=== PATIENT | male | born 1970 | race Caucasian/White ===

== ENCOUNTER → 2016-11-15 | Outpatient (CLI) | payer BC ==
[~2016-11-15] MED LIST: BACTRIM DS1 TAB PO; COLACE100 MG PO; COREG12.5 MG PO; COZAAR50 MG PO; CPAP INH; FLOMAX0.4 MG PO; FLONASE 50 MCG/16 GM NOSE; HYDRODIURIL25 MG PO; LEVAQUIN500 MG PO; NEOSPORIN1 PKT TOP; NORCO 5-325 TA1 EACH PO; NORVASC10 MG PO; OMNICEF 300MG300 MG PO; SANCTURA 20MG20 MG PO; TESTOSTERO200 MG/11 IM; THERA-VITE W/ B1 TAB PO; TYLENOL325 MG PO; VALIUM5 MG PO
== END | disposition disaster alternative care site (69) ==
LOC: GRAD 07:44
PROC: BT1BYZZ Fluoroscopy of Bladder and Urethra using Other Contrast (ICD-10-PCS; principal; 2016-11-15)
DX: N35.9 Urethral stricture, unspecified (principal)

== ENCOUNTER 2016-12-02 07:30 | Day surgery (SDC) | payer BC ==
[~2016-12-02] VITALS: Ht 172.7 cm; Wt 114.1 kg
--- NOTE | ~2016-12-02 | OR ---
PATIENT'S NAME: [facility] AGE: 46 Y [address] ROOM: [address] [address] LOCATION: [facility] [place] ADMIT DATE: 12/02/2016 OR/Procedure Report DISCHARGE DATE: FAMILY PHYSICIAN: LUCAS RIEC MD ATTENDING PHYSICIAN: DESTINEE SHULTZ SURGEON: Destinee Shultz MD MICROELECTRONICS ENGINEER: None. DATE OF PROCEDURE: 12/02/2016 PREOPERATIVE DIAGNOSIS: Bulbar urethral stricture. POSTOPERATIVE DIAGNOSIS: Bulbar urethral stricture. OPERATION PERFORMED: Anterior urethroplasty using excision and primary anastomotic technique and cystoscopy. ANESTHESIA ADMINISTERED: General. INDICATIONS FOR PROCEDURE: The patient is a pleasant, 46-year-old male with history of recurrent urethral stricture who had underwent urethral dilation on April 28, 2016. He ultimately developed a recurrence and presents today for definitive treatment. The patient was explained the risks, benefits, indications, and alternatives to the above procedure, wished to proceed, and consented freely. DESCRIPTION OF OPERATION: The patient was brought back to the operating room where he was placed on the OR table in the supine position. A surgical time- out was called where patient identification, surgical site, and procedure were then verified. We also did verify that the patient received an IV Levaquin antibiotic within an hour of beginning the procedure. The patient then underwent successful administration of general endotracheal anesthesia. The patient was then moved and placed in a dorsal lithotomy position. His abdomen and genital area were then prepped and draped in the usual sterile fashion. A red rubber catheter had been placed per urethra, a midline perineal incision was made in the skin, and the soft tissue was divided. A perineal Bookwalter retractor was then placed and used to aid in our retraction. The bulbospongiosus muscle was exposed and divided in the midline with Bovie cautery. The urethra was then exposed ventrally and then laterally. Next, we began the dorsal dissection, mobilizing the urethra from its attachments. We then took down the central perineal tendon. We were able to preserve the blood supply at the 5 o'clock and 7 o'clock positions. The stricture was right at the bulbar membranous region, and I opened up the urethra at the level of the stricture. I excised the stricture, and this was sent for pathologic analysis. I then performed cystoscopy, and there did appear to be a second urethral stricture which was approximately 18-Georgian in caliber just PATIENT'S NAME: [facility] AGE: 46 Y [address] ROOM: [address] [address] LOCATION: [facility] [place] ADMIT DATE: 12/02/2016 OR/Procedure Report DISCHARGE DATE: FAMILY PHYSICIAN: LUCAS RICE MD ATTENDING PHYSICIAN: DESTINEE SHULTZ distal to the stricture which was excised. I then further excised the proximal stump to excise the second urethral stricture, and this was still distal to his urethral sphincter. Full pancystoscopy was then performed, and his posterior urethra was notable for some [id number] bilobar hyperplasia of the prostate. His bladder was negative for any bladder tumors, cellules, or diverticula. He did have some mild bladder trabeculation noted. Again, this was a transecting technique. I spatulated the proximal stump dorsally and the distal stump ventrally. I then used a 5-0 PDS to perform the anastomosis, and sutures were placed in an interrupted fashion starting with the back wall dorsally. Once I had placed interrupted sutures along the back wall, I then placed a 14-Georgian silicone catheter which was placed without difficulty. I then tied down the ventral sutures, giving a nice secure and capacious anastomosis. I then used a 4-0 PDS suture to reapproximate the bulbospongiosus muscle in a running fashion. I had placed some FloSeal just inside the spongiosum muscle. The subcutaneous tissue was then closed with a 3-0 PDS and the skin with a 4-0 Monocryl suture. The 14-Georgian catheter was left indwelling. The patient was then taken out of the lithotomy position, and we placed fluffs in his perineum in a scrotal support and left the catheter to gravity drainage. The patient was then awoken from general anesthesia where he was then extubated, transferred to the recovery bed, and transported to the recovery room in good condition. COMPLICATIONS: None. SPECIMENS: Urethral stricture for pathologic analysis. ESTIMATED BLOOD LOSS: 200 mL. DRAINS: Indwelling urethral Dowling catheter to gravity drainage. FOLLOWUP PLAN: We will admit the patient overnight for observation with likely discharge home tomorrow, and then we will have him back in 2 weeks with a pericatheter retrograde urethrogram and possible catheter removal at that time. DESTINEE SHULTZ MD GP/chantale /[id number] PATIENT'S NAME: [facility] AGE: 46 Y [address] ROOM: [place] [address] LOCATION: [facility] [place] ADMIT DATE: 12/02/2016 OR/Procedure Report DISCHARGE DATE: FAMILY PHYSICIAN: LUCAS RICE MD ATTENDING PHYSICIAN: DESTINEE SHULTZ CC: Lucas Rice MD d: 12/02/16 1437 t: 12/09/16 1918, OPERATIVE SUMMARY
[~2016-12-02 07:30] MED LIST changes: -COLACE100 MG PO; -LEVAQUIN500 MG PO; -NEOSPORIN1 PKT TOP; -NORCO 5-325 TA1 EACH PO; -SANCTURA 20MG20 MG PO; -VALIUM5 MG PO
[2016-12-02 08:08] LABS: BASOPHIL % 0.3 %; HEMATOCRIT 43.2 % (37.0-53.0); HEMOGLOBIN 14.8 g/dL (12.0-17.0); IMMATURE GRANULOCYTE # 0.1 K/uL (0.0-0.3); IMMATURE GRANULOCYTE % 1.2 %; LYMPHOCYTE # 1.5 K/uL (0.8-4.0); LYMPHOCYTE % 25.8 %; MCHC 34.3 gm/dL (32.0-36.5); MCV 84.5 fl (83.0-98.0); MONOCYTE # 0.5 K/uL (0.0-1.0); MONOCYTE % 8.9 %; MPV 10.1 fl (9.4-12.4); NEUTROPHIL # (ANC) 3.8 K/uL (1.4-9.0); NEUTROPHIL % 63.8 %; NRBC % 0 /100WBC (0-0.00); PLATELET COUNT 213 K/uL (150-450); RBC 5.11 M/uL (4.00-6.00); RDW-CV 12.8 % (11.9-14.6); WBC 5.9 K/uL (4.0-11.0)
[2016-12-02 08:26] LABS: ALK PHOS 88 IU/L (33-138); ALT 37 IU/L (12-78); ANION GAP 10.7 (10.0-19.0); AST 20 IU/L (10-40); BLOOD UREA NITROGEN 15 mg/dL (6-24); CALCIUM 8.5 mg/dL (8.5-10.5); CHLORIDE 106 mMol/L (96-110); CO2 28 mMol/L (22-32); CREATININE 1.2 mg/dL (0.6-1.3); ESTIMATED GFR (MDRD EQUATION) > 60; SODIUM 141 mMol/L (135-145); TOTAL BILIRUBIN 0.5 mg/dL (0.0-1.5); TOTAL PROTEIN 7.5 g/dL (6.0-8.4)
[2016-12-02 08:27] LABS: POTASSIUM 3.7 mMol/L (3.7-5.1)
--- NOTE | 2016-12-02 16:31 | NUR ---
Here from PACU at 1305.Josey kate yellow urine with some sediment noted.IV put to SL at 1515.Taking flds well.Has fluffs on testicles & incision under scrotum.Also has scrotal support on.Will go home with catheter for 2-3 wks.Has had no c/o pain.No N/V.Has not been up yet.
--- NOTE | 2016-12-03 05:04 | NUR ---
PT AA&OX3. SBA. IV L) FOREARM. SALINE LOCKED WITH BLOOD RETURN. AVENDANO DRAINING YELLOW URINE. PATIENT TO GO HOME WITH AVENDANO FOR 2-3 WEEKS. TOLERATING REGULAR DIET WELL. NO C/O PAIN 0R SOB. SCROTAL SUPPORT WITH GAUZE AND JOCK STRAP. CPAP AT NIGHT. SLEPT THROUGH NIGHT. VSS. RA.
[2016-12-03 05:21] LABS: BASOPHIL % 0.1 %; HEMATOCRIT 36.5 % (37.0-53.0); HEMOGLOBIN 12.4 g/dL (12.0-17.0); IMMATURE GRANULOCYTE # 0.1 K/uL (0.0-0.3); IMMATURE GRANULOCYTE % 0.4 %; LYMPHOCYTE # 1.1 K/uL (0.8-4.0); LYMPHOCYTE % 9.1 %; MCH 29.2 pg (27.0-34.0); MCV 85.9 fl (83.0-98.0); MONOCYTE # 0.8 K/uL (0.0-1.0); MPV 10.2 fl (9.4-12.4); NEUTROPHIL # (ANC) 9.6 K/uL (1.4-9.0); NEUTROPHIL % 83.4 %; NRBC % 0 /100WBC (0-0.00); PLATELET COUNT 206 K/uL (150-450); RBC 4.25 M/uL (4.00-6.00); WBC 11.5 K/uL (4.0-11.0)
[2016-12-03 05:39] LABS: ANION GAP 13.5 (10.0-19.0); CALCIUM 8.8 mg/dL (8.5-10.5); CREATININE 1.3 mg/dL (0.6-1.3); POTASSIUM 3.5 mMol/L (3.7-5.1)
[2016-12-03] MEDS ORDERED: NORCO 5-325 TA1 EACH PO (13:08)
[2016-12-03] MEDS ORDERED: LEVAQUIN500 MG PO (13:09)
[2016-12-03] MEDS ORDERED: VALIUM5 MG PO (13:13)
[2016-12-03] MEDS ORDERED: COLACE100 MG PO (13:14)
[2016-12-03] MEDS ORDERED: NEOSPORIN1 PKT TOP (13:15)
[2016-12-03] MEDS ORDERED: SANCTURA 20MG20 MG PO (13:16)
--- NOTE | 2016-12-03 15:30 | NUR ---
D: ORDERS RECEIVED FOR THE PATIENT TO BE DISCHARGED TO HOME WITH HIS . I: DISMISSAL INSTRUCTIONS WERE PREPARED BY THE VIRTUAL NURSE AND REVIEWED WITH THE PATIENT AND HIS AT BEDSIDE. THE FOLLOWING INFORMATION WAS DISCUSSED INCLUDING JOSEPH TEACHING PROVIDED: URETHROPLASTY, VALIUM, COLACE NEOSPORIN, SANCTURA, NORCO, LEVOFLOXACIN, PREVENTING DVT, DISCHARGE INSTRUCTIONS-CARING FOR YOUR INDWELLING URINARY CATHETER, EMPTYING AND CLEANING YOUR URINARY CATHETER BAG, AND DISCHARGE INSTRUCTIONS-CARING FOR YOUR LEG BAG. REVIEWED FOLLOW UP APPOINTMENTS AND NEW PRESCRIPTIONS. R: THE PATIENT AND HIS BOTH VERBALIZED UNDERSTANDING OF THE DISMISSAL EDUCATION AT THE TIME OF TEACHING WITH NO FURTHER QUESTIONS. P: THE ABOVE INFORMATION WAS SHARED WITH THE PRIMARY NURSE AND THE CHARGE NURSE THAT THE PATIENT DISMISSAL EDUCATION WAS COMPLETED. THE PATIENT IS READY FOR DISCHARGE TO THE [facility] VIA WHEEL CHAIR BY NURSING STAFF.
== END 2016-12-03 15:55 | disposition disaster alternative care site (69) ==
LOC: GMSU 07:30 → GSDC 07:30 → GMSU 07:32 → GPOC 08:00 → GMSU 13:00 → GSDC 12-03 15:55
PROVIDERS: Urology
PROC: 0TQD0ZZ Repair Urethra, Open Approach (ICD-10-PCS; principal; 2016-12-02)
DX: N35.8 Other urethral stricture (principal); N36.8 Other specified disorders of urethra; I10 Essential (primary) hypertension; Z88.0 Allergy status to penicillin; Z88.8 Allergy status to other drugs, medicaments and biological substances; Z98.890 Other specified postprocedural states
CPT/HCPCS: J1885; J1956; J7120

== ENCOUNTER → 2016-12-17 | Outpatient (CLI) | payer BC ==
[~2016-12-17] MED LIST changes: +COLACE100 MG PO; +LEVAQUIN500 MG PO; +NEOSPORIN1 PKT TOP; +NORCO 5-325 TA1 EACH PO; +SANCTURA 20MG20 MG PO; +VALIUM5 MG PO
== END | disposition disaster alternative care site (69) ==
LOC: GRAD 11:08
DX: N35.9 Urethral stricture, unspecified (principal)

== ENCOUNTER → 2017-03-16 | Outpatient (CLI) | payer BC | END | disposition disaster alternative care site (69) | LOC: GRAD 11:12 | PROC: BT1B1ZZ Fluoroscopy of Bladder and Urethra using Low Osmolar Contrast (ICD-10-PCS; principal; 2017-03-16) | DX: N35.9 Urethral stricture, unspecified (principal) ==